=== PATIENT | male | born 1950 | race Caucasian/White ===

== ENCOUNTER 2016-06-20 17:50 | Observation (INO) | payer BC ==
[~2016-06-20] VITALS: Ht 172.7 cm; Wt 90.0 kg
[~2016-06-20 17:50] MED LIST: AMARYL DPS4 MG PO; ASPIR 8181 MG PO; BRILINTA90 MG PO; COREG DPS6.25 MG PO; CRESTOR10 MG PO; ECOTRIN81 MG PO; FLOMAX DPS0.4 MG PO; HEPARIN IV; HUMALOG 50100 UNITS/ SQ; LANTUS100 UNITS/ SQ; LEVAQUIN DPS500 MG PO; NITRO BID TP; NORMAL SALINE I10 ML IV; OMEPRAZOLE20 M1 PO; PLAVIX75 MG PO; PROTONIX40 MG PO; RANEXA1000 MG PO; TAMSULOSIN HCL0.4 MG PO; THERAPEUTIC MUL1 TAB PO; VALIUM-DPS5 MG PO; VESICARE5 MG PO; VIBRAMYCIN-DPS100 M2 PO; VICTOZA 2-0.6 MG/0.1 SQ; VITAMIN D31000 UNIT PO; VITAMIN E400 UNI1 PO; ZOFRAN4 MG PO
--- NOTE | 2016-07-01 11:55 | HP ---
ADMIT: 06/20/2016 RM/LOC: [facility] MR#: [id number] [address] [address] NOLVIA NANCE [address] [place] [address] History and Physical SEX: M AGE: 66 : 1950 DATE OF SERVICE: REASON FOR ADMISSION: Chest pain, coronary artery disease. Mahi Plummer RN, scribing for Dr. Nino Fuller. HISTORY OF PRESENT ILLNESS: Nolvia is a pleasant 66-year-old gentleman, well known to [facility], who presented to [facility] with complaints of chest pain. He has history of coronary artery disease, status post bypass in 1997, as well as a history of percutaneous coronary intervention as well. He was last seen in clinic on Monday of last week by ELENI Callaway, as well as by Dr. Jarett Patterson for his ongoing chest discomfort. He describes chest pain, starting about a few months ago with exercise, resolving with rest, and it progressively had intensified and come on with less activity stating that activities such as minimal walking in his home would produce chest discomfort and then resolve with rest. As of Monday, he began having constant chest discomfort with and without exertion. He was started on amlodipine yesterday 2.5 mg daily. He continued to have chest discomfort that he describes as a squeezing, radiating into his jaw. He called the office and was instructed to go to the emergency room for further evaluation. He is scheduled to have cardiac catheterization by Dr. Mo in [place] on Monday of this week. He did come to the emergency room because he took two sublingual nitroglycerin at home and his pain did not improve. On arrival to the ER, he was started on a nitroglycerin drip which did resolve his symptoms. Cardiac enzymes x2 have been negative. EKG did not show any significant ST elevation. Since having the nitroglycerin drip, he has been pain free. He has also been sedentary. PAST MEDICAL HISTORY: 1. History of coronary artery disease, status post 5-vessel bypass in 1997, YADAV to LAD, SVG to diagonal 1, radial to AM and PDA, and COLEEN to circumflex with proximal anastomosis to the diagonal VG. Multiple cardiac catheterizations with last heart catheterization in November of 2014, normal ejection fraction. 2. Hypertension. 3. Hyperlipidemia. 4. Diabetes. 5. Bilateral cataracts. 6. BPH. 7. Skin cancer. 8. Depression. 9. GERD. 10.Sleep apnea. PAST SURGICAL HISTORY: 1. Coronary bypass grafting. 2. LASIK eye surgery. ALLERGIES: PENICILLIN. ADMIT: 06/20/2016 RM/LOC: [address] [facility] MR#: [id number] [address] [address] NOLVIA NANCE [address] [place] [address] History and Physical SEX: M AGE: 66 : 1950 MEDICATIONS: Home medications include: 1. Brilinta 100 b.i.d. 2. Crestor 10 daily. 3. Ranexa 1000 twice daily. 4. Carvedilol 6.25 p.o. b.i.d. 5. Tamsulosin 0.4 daily. 6. VESIcare 10 daily. 7. Lantus 30 daily. 8. Victoza 1.8 daily. 9. Glimepiride 4 b.i.d. 10.Omeprazole 20 daily. 11.Trazodone 50 at bedtime, alternate with Ambien 10 mg. 12.Aspirin 81 mg daily. 13.Vitamin D 1000 mg daily. 14.Multivitamin daily. 15.Vitamin E 200 daily. 16.Fish oil 1000 daily. 17.Amlodipine 2.5 daily. FAMILY HISTORY: Positive family history of premature coronary artery disease in father who had a myocardial infarction and at the age of 60. Positive family history of coronary disease in other members including uncles. Denies family history of stroke. SOCIAL HISTORY: Nolvia is . He lives at home with his . He is a banking supervisor. He has four children. He has never smoked. Denies any alcohol or drug use. He does drink coffee on a regular basis. REVIEW OF SYSTEMS: GENERAL: Denies fatigue, fever, chills, sweats, rash, or weight loss. EYES: Denies double vision, blurred vision, or glaucoma. History of cataracts. ENT: Denies hearing loss or problems with nose, mouth or throat. PULMONARY: Denies cough, sputum production, asthma, emphysema or bronchitis. Denies snoring loudly, wakefulness at night, or fatigue upon awakening. GASTROINTESTINAL: Denies difficulty swallowing. No change in bowel habits. Denies dark or bloody stools. No history of ulcers, hiatal hernia, or gallbladder or liver disease. History of gastroesophageal reflux disease. GENITOURINARY: Denies dysuria, hematuria, nocturia, urinary tract infection, or kidney stones. Denies history of renal insufficiency or failure. MUSCULOSKELETAL: Denies history of arthritis or gout. Denies muscle or joint pains. ENDOCRINE: History of diabetes. Denies thyroid disease. HEMATOLOGIC: Denies history of anemia, easy bruising, or cancer. NEUROLOGIC: Denies chronic headaches, dizziness, syncope, stroke, seizures or numbness or tingling. PSYCHIATRIC: Denies history of mental illness or feelings of depression. ADMIT: 06/20/2016 RM/LOC: [address] [facility] MR#: [id number] [address] [address] NOLVIA NANCE [address] [place] [address] History and Physical SEX: M AGE: 66 : 1950 PHYSICAL EXAMINATION: VITAL SIGNS: Blood pressure is 110/67, heart rate 67, respirations 16, temperature 95.7, oxygenation 97% on room air. SKIN: [place], warm and dry. EYES: Sclerae clear. No xanthelasmas. ENT: Oral mucosa is pink and moist. No jugular venous distention or carotid bruits. CHEST: Respirations are even and unlabored. Lungs are clear to auscultation. HEART: Regular rate and rhythm. Normal S1, S2. No murmurs, rubs or gallops. ABDOMEN: Soft and nontender. MUSCULOSKELETAL: Gait is normal. EXTREMITIES: Peripheral pulses palpable. No clubbing, cyanosis or edema. PSYCHIATRIC: Alert and oriented. Mood and affect are appropriate. DIAGNOSTIC DATA: Sodium 139, potassium 3.7, BUN 17, creatinine 1.3, glucose 175, magnesium 2.2. Total cholesterol 115, triglycerides 244, HDL 35, LDL 31. CK 78, MB 1.1. Troponin less than 0.015 on second set. White blood cell count 7.1, hemoglobin 13.3, hematocrit 38.7, platelets 203. ASSESSMENT AND PLAN: 1. Angina, unstable. 2. Coronary artery disease. 3. History of bypass. 4. Diabetes mellitus. Nolvia's symptoms are consistent with unstable angina. They have progressively worsened over the last few weeks. He had planned outpatient catheterization at [facility] on Monday but given his ongoing symptoms with resolution with IV nitroglycerin, I would recommend transferring to [facility] for inpatient cardiac catheterization at this point. I discussed with the patient and his , and they are agreeable to this plan. His pain was relieved with heparin drip and nitroglycerin drip. I will give a Valium for travel with his claustrophobia. I have read and agree with the documentation that has been completed regarding this visit. By signing this record, I attest that the documentation was completed in my physical presence and is an accurate record of the encounter. Mahi Plummer RN / [place]. Nino Fuller MD / noble JOB #: [id number] CC: Jarett R Fruehling, Attending Physician Danny Uriarte, Family Physician Danny Uriarte MD
--- NOTE | 2016-07-09 08:09 | ER ---
ADMIT: 06/20/2016 RM/LOC: [address] [facility] MR#: [id number] [address] [facility] [address] [place] [id number] MARGARITO NANCE [address] [place] [address] Emergency Room Report SEX: M AGE: 66 : 1950 DATE: 06/20/2016 ADDENDUM: A 66-year-old white male coming in with chest pain. This is increasingly to the point where he has unstable angina. Not much effort at all causes him to have pain. They put him on amlodipine for his angina through [facility] and that had not gotten any better whatsoever. This started about 2 months ago when he was having more and more exertional chest pain to the point where he could not do any exercise whatsoever, then it got to the point where it was just coming without him doing anything. Also, he has unstable angina. He has had a cardiac bypass, eight heart caths, multiple stents, so he is definitely a vascular path. He also has diabetes on top of this. At this time, we put him on heparin drip, nitroglycerin drip. I spoke with Dr. Fuller. We have controlled his pain. His lab, EKG, troponin, chest x-ray are all negative. He was put in the unit. CONDITION ON DISCHARGE: Critical, but stable. Reji Sandoval MD/ opall JOB #: [id number] CC: Jarett Patterson MD, Attending Physician Danny Uriarte MD, Family Physician
--- NOTE | 2016-07-29 14:31 | DS ---
ADMIT: 06/20/2016 RM/LOC: [address] [facility] MR#: [id number] [address] [facility] [address] [place] [id number] NOLVIA NANCE [address] [place] [address] General Discharge Summary SEX: M AGE: 66 : 1950 CORRECTED: 07/12/2016 1159 DJS / 07/19/20162009 [facility] ADMISSION DATE: 06/20/2016 DISCHARGE DATE: 06/21/2016 REASON FOR ADMISSION: Chest pain with history of coronary artery disease. Mahi Plummer RN, scribing for Dr. Nino Fuller. FINAL DIAGNOSES: 1. Unstable angina. 2. Coronary artery disease. 3. History of bypass. 4. Diabetes mellitus. HOSPITAL COURSE: Nolvia is a pleasant 66-year-old gentleman, who presented to [facility] on June 20, with complaints of chest discomfort. He had prior history of bypass in 1997, as well as PCI previously as well. He had been seen in clinic for ongoing chest discomfort exertional in nature, progressively getting more intense and coming on with less activity and reported that activities such as minimal walking inside his home would produce chest discomfort resolving with rest. Despite medication changes, he continued to have discomfort, so he presented to the emergency room for further evaluation. He was already scheduled for cardiac catheterization at later on that week, but because he tried sublingual nitroglycerin at home and his pain did not improved, he presented to the ER. Enzymes were negative during the hospital stay. EKG did not show any significant elevation, but he was placed on nitroglycerin drip and once on that was pain-free. He also had an episode in the morning of hypotension with blood pressure systolic in the 70s, and he was symptomatic with significant lightheadedness with that. Because his symptoms worsened progressively over a few weeks and the fact of his history of bypass with recommendations for cardiac catheterization with surgery backup, it was decided at that time that he would be transferred to , for inpatient cardiac catheterization sooner than planned. He would be transferred via ambulance as he was still on heparin drip and nitroglycerin drip, and he was given Valium for travel because of his claustrophobia. LABORATORY DATA AND IMAGING: Lab work in hospital included white blood cell count of 6.1, hemoglobin 13.3, hematocrit 38.7, platelets 203. Sodium 139, potassium 3.7, chloride 104, BUN 17, creatinine 1.3, glucose 175. Fasting lipid profile showed cholesterol of 115, triglycerides of 244, HDL was 35, with an LDL of 31. Magnesium was 2.2. Two sets of cardiac enzymes performed ADMIT: 06/20/2016 RM/LOC: [address] [facility] MR#: [id number] [address] [address] NOLVIA NANCE [address] [place] [address] General Discharge Summary SEX: M AGE: 66 : 1950 showed CK 78, MB 1.1, troponin less than 0.015. Troponin was negative on both sets. Chest x-ray demonstrated mild peribronchial cuffing centrally with no significant changes. EKG demonstrated nonspecific ST to T changes, in sinus rhythm at 70 beats per minute. Nolvia was transferred to the [facility] in stable condition. I have read and agree with the documentation that has been completed regarding this visit. By signing this record, I attest that the documentation was completed in my physical presence and is an accurate record of the encounter. Mahi Plummer RN / Abraham Fuller MD / noble JOB #: [id number] CC: Jarett Patterson MD, Attending Physician Danny Uriarte MD, Family Physician CORRECTED: 07/12/2016 1159 DJS / 07/19/20162009 [facility]
== END 2016-06-21 12:17 | disposition short-term general hospital (02) ==
LOC: ER 17:50 → 4PCU 19:17
PROVIDERS: ADMIT Internal Medicine
DX: I25.110 Atherosclerotic heart disease of native coronary artery with unstable angina pectoris (principal); E11.9 Type 2 diabetes mellitus without complications; I10 Essential (primary) hypertension; F32.9 Major depressive disorder, single episode, unspecified; Z95.1 Presence of aortocoronary bypass graft; G47.30 Sleep apnea, unspecified; E78.5 Hyperlipidemia, unspecified; Z79.82 Long term (current) use of aspirin; Z79.52 Long term (current) use of systemic steroids; Z88.0 Allergy status to penicillin; Z98.890 Other specified postprocedural states; Z79.899 Other long term (current) drug therapy; Z85.828 Personal history of other malignant neoplasm of skin